=== PATIENT | male | born 1960 | race Caucasian/White ===

== ENCOUNTER 2016-06-13 09:21 | Emergency (ER) | payer BC, OTHER ==
[2016-06-13 09:41] VITALS: BP 170/94
--- NOTE | 2016-06-13 10:26 | UC ---
Respiratory Complaint HPI - HPI Summary HPI Summary: The patient comes in today for: 1. Vomiting, dyspnea, cough, left thumb numbness, left shoulder pain: Onset: Vomiting--for a few days. Dyspnea--for a few days. Cough: 2-3 weeks. Left thumb numbness-a week, shoulder pain x 1 week" Palliative/provocative: Nothing makes symptoms better or worse. Quality: Hacking. Region: Lungs and left thumb, and left shoulder. Severity: 8/10 though he looks more like 10 Time: Constant. Associated symptoms: PCP: Has one and is supposed to see one tomorrow. Event: He fell while walking out the door. He slipped on the ice. He fell on his shoulder. He did not injury his thumb with this fall. Vomitin-4 times in the last 24 hours. Last vomiting was while in the office. Diarrhea: None. Urination: Medium yellow. Lightheadedness: None. Smoker: 2ppd, x 42 yrs. Last CXR: Nothing recent. Coughing: Phlegm--yellow. Previous lung disease: None mentioned to the patient. Previous shoulder injury: He states that he had a previous shoulder injury and saw a specialist who said that "there was nothing that they could do." He did not tell me this until after he came back from x-ray.. 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 - Allergies/Home Medications Allergies/Adverse Reactions: Allergies Allergy/AdvReac Type Severity Reaction Status Date / Time Atorvastatin [From Lipitor] Allergy Rash Verified 06/13/16 09:44 Levofloxacin [From Levaquin] Allergy Rash Verified 06/13/16 10:00 Simvastatin Allergy Rash Verified 06/13/16 10:00 Home Medications: Home Medications Aspirin [Aspirin Adult Low Dose] 81 mg PO DAILY 06/13/16 [History Confirmed ] Gabapentin CAP(*) [Neurontin 100 mg CAP(*)] 100 mg PO DAILY 06/13/16 [History Confirmed 06/13/16] Metformin HCl [Glucophage] 500 mg PO BID 06/13/16 [History Confirmed 06/13/16] Rosuvastatin Calcium [Crestor] 10 mg PO DAILY 06/13/16 [History Confirmed ] PMH/Surg Hx/FS Hx/Imm Hx Previously Healthy: No - Peripheral neuropathy. Endocrine History Of: Reports: Diabetes, Dyslipidemia Denies: Thyroid Disease, Hyperthyroidism, Hypothyroidism Cardiovascular History Of: Reports: Cardiac Disorders - heart murmur Denies: Hypertension, Pacemaker/ICD, Myocardial Infarction, Congestive Heart Failure, Atrial Fibrillation, Deep Vein Thrombosis, Bleeding Disorders Respiratory History Of: Denies: COPD, Asthma, Bronchitis, Pneumonia, Pulmonary Embolism GI/ History Of: Denies: Gastroesophageal Reflux, Ulcer, Gastrointestinal Bleed, Gall Bladder Disease, Kidney Stones, Diverticulitis, Renal Disease, Urosepsis Neurological History Of: Denies: TIA, CVA, Dementia, Seizures, Migraine Psychological History Of: Denies: Anxiety, Depression, Bipolar Disorder, Schizophrenia, Post Traumatic Stress Disorder Cancer History Of: Denies: Lung Cancer, Colorectal Cancer, Breast Cancer, Prostate Cancer, Cervical Cancer Other History Of: Anticoagulant Therapy - HE is on daily aspirin. Negative For: HIV, Hepatitis B, Hepatitis C - Surgical History Surgical History: None - Family History Known Family History: Positive: Cardiac Disease, Hypertension - Social History Occupation: Employed Full-time Alcohol Use: Occasionally Substance Use Type: None Smoking Status (MU): Heavy Every Day Tobacco Smoker Type: Cigarettes Amount Used/How Often: 2 packs per day Length of Time of Smoking/Using Tobacco: 45 years-age 8 Have You Smoked in the Last Year: Yes Review of Systems Constitutional: Negative Skin: Negative Eyes: Negative ENT: Negative, Sore Throat, Nasal Discharge - Yellow. Respiratory: Shortness Of Breath, Cough Cardiovascular: Negative Gastrointestinal: Negative, Vomiting, Diarrhea Genitourinary: Negative All Other Systems Reviewed And Are Negative: Yes Physical Exam Triage Information Reviewed: Yes Appearance: Well-Appearing, No Pain Distress, Well-Nourished Vital Signs: Initial Vital Signs Temp 98.2 F 06/13/16 09:29 Pulse 84 06/13/16 09:29 Resp 16 06/13/16 09:29 BP 170/94 06/13/16 09:29 Pulse Ox 97 06/13/16 09:29 Vital Signs Reviewed: Yes Eyes: Positive: Conjunctiva Clear. Negative: Discharge ENT: Positive: Hearing grossly normal. Negative: Pharyngeal erythema, Nasal congestion, Nasal drainage, TMs normal, TM dull, TM red, Tonsillar swelling, Tonsillar exudate Dental: Negative: Gross Decay/Caries @, Dental Fracture @ Neck: Positive: Supple, Nontender, No Lymphadenopathy, Other: - There is pain with forward flexion and backward extension, rotation and lateral flexion.. Negative: Nuchal Rigidity Respiratory: Positive: Lungs clear, No respiratory distress, No accessory muscle use. Negative: Rhonchi, Wheezing Cardiovascular: Positive: RRR - Heart tones were distant., No Murmur Abdomen Description: Positive: Nontender, No Organomegaly, Soft. Negative: Distended, Guarding Musculoskeletal: Positive: Strength Intact, ROM Intact, Other: - He had tenderness to palpation of the coracoid process area, the biceps tendon. There is good range of motion with no marked problem with abduction. He is able to slowly lower his arms without any give-away. And there is good resistance strenght with internal and external rotation. Neurological: Positive: Alert, Muscle Tone Normal, Other: - There is tenderness to pin prick sensation of the left thumb, index finger, and littler finger volar , and from distal 1/3 of the forearm. No marked weakness of the arm. DTR of the biceps and triceps and brachioradialis were 1/2 x 2 for biceps and triceps, and 2/2 x 2 for the brachioradialis. No muscular atrophy. He has sensation ( no numbness) to pin prick of the back of his hands and wrists and forearms except for the left thumb. Psychological: Positive: Age Appropriate Behavior, Consolable Skin: Negative: rashes, breakdown UC Diagnostic Evaluation - Laboratory O2 Sat by Pulse Oximetry: 97 Diagnostic Studies Comment: IMPRESSION: 1. SLIGHTLY LIMITED EXAM, NO EVIDENCE FOR FRACTURE OR SUBLUXATION. 2. MILD TO MODERATE DEGENERATIVE DISC DISEASE. - Radiology Xray Interpretation: Positive (See Comments) - IMPRESSION: MILD WIDENING OF THE ACROMIOCLAVICULAR JOINT SUGGESTIVE OF MILD AC Radiology Interpretation Completed By: Radiologist Respiratory Course/Dx - Differential Dx/Diagnosis Provider Diagnoses: Viral gastroenteritis/vomiting. chronic left shoulder pain. sinusitis/bronchitis. chronic smoker/suspect COPD. left thumb numbness/ hx diabetic peripheral neuropathy. Discharge - Discharge Plan Condition: Stable Disposition: HOME Patient Education Materials: Gastroenteritis (ED), Sinusitis (ED), Acute Bronchitis (ED), Shoulder Pain (ED), Paresthesia (ED) Referrals: Sara Mejia MD [Primary Care Provider] - 1 Day (See your primary care provider tomorrow as you have planned to see how well you are doing and to follow up on your thumb numbness and vomiting.)
--- NOTE | 2016-06-13 10:58 | RAD ---
INDICATION: Trauma. COMPARISON: There are no prior studies available for comparison. TECHNIQUE: Dual-energy PA and lateral views of the chest were obtained. FINDINGS: The heart is within normal limits in size. Mediastinal and hilar contours appear within normal limits. The lungs are clear. No pleural effusion is present. IMPRESSION: NO EVIDENCE FOR ACTIVE CARDIOPULMONARY DISEASE.
--- NOTE | 2016-06-13 11:00 | RAD ---
INDICATION: Left shoulder injury. TECHNIQUE: 3 views of the left shoulder were obtained. FINDINGS: There is mild widening of the coracoclavicular joint. No fracture is seen. Joint spaces appear maintained. IMPRESSION: MILD WIDENING OF THE ACROMIOCLAVICULAR JOINT SUGGESTIVE OF MILD AC SEPARATION, AGE INDETERMINATE.
--- NOTE | 2016-06-13 11:03 | RAD ---
INDICATION: Trauma to weeks ago, neck pain. COMPARISON: There are no prior studies available for comparison. TECHNIQUE: 5 views of the cervical spine were obtained including lateral, oblique, AP and open-mouth odontoid views. FINDINGS: The C7 vertebra is partially obscured by the patient's shoulders on the lateral image. The vertebra are in normal alignment. No prevertebral soft tissue swelling or fracture is seen. There is moderate disc space narrowing and uncinate process spurring present at the C3-C4 and C6-C7 levels and mild disc space narrowing and uncinate process spurring at the C4-C5 and C5-C6 levels. IMPRESSION: 1. SLIGHTLY LIMITED EXAM, NO EVIDENCE FOR FRACTURE OR SUBLUXATION. 2. MILD TO MODERATE DEGENERATIVE DISC DISEASE.
== END 2016-06-13 11:33 | disposition home or self-care (01) ==
LOC: UCCORT 09:21
DX: A08.4 Viral intestinal infection, unspecified (principal); M25.512 Pain in left shoulder; J32.9 Chronic sinusitis, unspecified; J40 Bronchitis, not specified as acute or chronic; R20.0 Anesthesia of skin; E11.9 Type 2 diabetes mellitus without complications; G62.9 Polyneuropathy, unspecified; Z79.84 Long term (current) use of oral hypoglycemic drugs; Z88.8 Allergy status to other drugs, medicaments and biological substances; F17.210 Nicotine dependence, cigarettes, uncomplicated
CPT/HCPCS: 71020; 72050; 99202; G0463